=== PATIENT | female | born 1930 | race Caucasian/White ===

== ENCOUNTER 2017-06-18 14:34 | Inpatient (IN) ==
[2017-06-18] MEDS ORDERED: IOPAMIDOL 100 ML BOTTLE IV ONE (14:35)
[2017-06-18] MEDS ORDERED: 0.9 % SODIUM CHLORIDE 1,000 ML IV ONE (15:00)
--- NOTE | 2017-06-18 15:36 | Emergency Department Note ---
Abdominal Pain HPI - General Chief Complaint: Abdominal Pain Stated Complaint: abd pain x3 days Time Seen by Provider: 06/18/17 15:19 Source: patient, family Mode of arrival: wheelchair Limitations: no limitations - History of Present Illness HPI Narrative: 86-year-old female with a history of lower abdominal pain for the past 24 hours she does not really know how long is been present. She is a poor historian. Denies any urgency frequency or dysuria. - Related Data Home Medications Medication Instructions Recorded Confirmed calcium carbonate 500 mg (1,250 1 tab PO QHS tab 11/29/14 06/18/17 mg)-vitamin D3 125 unit tablet vitamin A-vitamin C-vit E-min 1 tab-cap PO QDAY tab 12/22/14 06/18/17 tablet Previous Rx's Medication Instructions Recorded acetaminophen 500 mg tablet 500 mg PO Q6H PRN #90 tab 03/18/17 amlodipine 5 mg tablet 5 mg PO QDAY #90 tab 03/18/17 artificial tears (hypromellose) 1 drp OPHTHALMIC TID #10 ml 03/18/17 (PF) 0.3 % eye drops ascorbic acid (vitamin C) 500 mg 500 mg PO QDAY #90 tab 03/18/17 chewable tablet aspirin 81 mg tablet,delayed 81 mg PO QDAY #90 tab 03/18/17 release atorvastatin 40 mg tablet 40 mg PO QHS #90 tab 03/18/17 cranberry 400 mg capsule 400 mg PO QDAY #90 cap 03/18/17 donepezil 10 mg tablet 10 mg PO QHS #90 tab 03/18/17 ginkgo biloba 120 mg tablet 120 mg PO QDAY #90 tab 03/18/17 lisinopril 40 mg tablet 40 mg PO QDAY #90 tab 03/18/17 lorazepam 0.5 mg tablet 0.5 mg PO BID PRN #10 tab 03/18/17 metformin ER 500 mg 500 mg PO QDAY #90 tab 03/18/17 tablet,extended release 24 hr multivitamin tablet 1 tab PO QDAY #90 tab 03/18/17 Allergies Allergy/AdvReac Type Severity Reaction Status Date / Time trimethoprim [From Bactrim] Allergy Mild Nausea Verified 06/18/17 13:35 promethazine [From Phenergan] AdvReac Severe Hallucinati Verified 06/18/17 13:35 ng sulfamethoxazole AdvReac Mild Nausea Verified 06/18/17 13:35 [From Bactrim] Abdominal Pain PMH - Social History Smoking status: Never smoker Physical Exam Limitations: no limitations Course Vital Signs Temperature 97.3 F 06/18/17 14:43 Pulse Rate 73 06/18/17 14:43 Respiratory Rate 18 06/18/17 14:43 Blood Pressure 130/50 06/18/17 14:43 Pulse Oximetry (%) 97 06/18/17 14:43 Temperature 97.3 F 06/18/17 14:43 Pulse Rate 60 06/18/17 17:40 Respiratory Rate 18 06/18/17 14:43 Blood Pressure 117/56 06/18/17 17:40 Pulse Oximetry (%) 97 06/18/17 17:40 Abdominal Pain - [facility] Narrative Medical decision making narrative: elevated wbc 17,470 fever 103, lactate 9.47 blood culture drawn and started on rocephin and zithromax. chest exray show no obvious infiltrate.. patient was weak in the bsathroom required assistance to help get back up. case presented to dr White and she will vbe here to admitt - Lab Data Result diagrams: 06/18/17 15:15 06/18/17 15:15 Disposition Pt seen by COMPUTER TRAINER/PA only: No Clinical Impression: Sepsis Qualifiers: Sepsis type: sepsis due to unspecified organism Qualified Code(s): A41.9 - Sepsis, unspecified organism Disposition: Xfer As Inpt ([facility]) Condition: Fair Referrals: Farhat Montenegro MD [Primary Care Provider] -
[2017-06-18] MEDS ORDERED: LEVOFLOXACIN 500 MG/100 ML BAG IV ONE (17:38)
--- NOTE | 2017-06-18 18:47 | Cat Scan Report ---
CLINICAL INFORMATION: Abdominal pain COMPARISON: Previous CT scan dated 01/16/2012 TECHNIQUE: Axial images were obtained through the abdomen and pelvis. Sagittally and coronally reformatted images. 70 amount contrast material injected intravenously. Oral contrast material was given FINDINGS: Partial mechanical small bowel obstruction. Transition point is approximately midline at the level of the iliac crests. Appearance is consistent with partial ileal obstruction. Distal ileum is not dilated. There is contrast material within the colon indicating this is not a complete obstruction. There is infiltration of the fat surrounding the ileum. No pneumoperitoneum. No intra-abdominal abscess. I am not given history of previous surgery. This is probably related to adhesions. Internal hernia is possible. No evidence for closed loop obstruction. : Is negative. No diverticulitis. No detectable colonic mass. No appendicitis. No free intraperitoneal fluid. No pneumoperitoneum. No intra-abdominal abscess. Lung bases are negative. No parenchymal infiltrate or mass. No pleural fluid. No pericardial fluid. There is a 10 mm low-density abnormality in the anterior segment of the right lobe of the liver. This is stable since 2011 and is benign. Previous cholecystectomy. Common bile duct measures approximately 9 mm in cross-sectional diameter. No detectable choledocholithiasis. No intrahepatic bile duct dilatation. Negative spleen. No splenomegaly. Normal enhancement splenic and portal veins Negative adrenal glands. Negative pancreas. No pancreatic mass. No peripancreatic abnormality. Kidneys are negative. No solid or cystic mass. No hydronephrosis. Uterus is present. No adnexal mass. Multilevel degenerative disc disease and lumbar spine. No compression deformities. No sacral or pelvic fracture. There is calcification of the abdominal aorta. No abdominal aortic aneurysm. Celiac trunk and superior mesenteric artery are patent. IMPRESSION: 1. Partial mechanical small bowel obstruction at the level of the ileum. This is at approximately the level of the iliac crests and midline. Findings may be secondary to adhesions or internal hernia. No evidence for significant closed loop. 2. Previous cholecystectomy. Mild extrahepatic bile duct dilatation 3. Atherosclerotic disease. No abdominal aortic aneurysm Interpreted and Authenticated by: Julian Quarles 06/18/17
[2017-06-18] MEDS ORDERED: PIPERACILLIN SODIUM/TAZOBACTAM 3.375 GM VIAL IV ONE (19:25)
[2017-06-18] MEDS ORDERED: ONDANSETRON 4 MG/2 ML VIAL IV PRN (19:28)
[2017-06-18] MEDS: PIPERACILLIN SODIUM/TAZOBACTAM 3.375 GM in DEXTROSE 5% IN WATER 50 ML IV SCH (20:01)
[2017-06-18] MEDS: 0.9 % SODIUM CHLORIDE 1,000 ML IV SCH (20:53)
[2017-06-18 23:44] LABS: Appearance,Urine CLOUDY; Bacteria,Urine FEW /hpf (0); Bilirubin,Urine NEG (NEG); Color,Urine AMBER; Glucose,Urine (UA) NEGATIVE (NEG); Leukocyte Esterase,Urine 500 /uL (NEG); Mucus,Urine MANY /hpf (0); Nitrate,Urine NEG (NEG); Protein,Urine 30 mg/dL (NEG); Specific Gravity,Urine 1.019 (1.000-1.035); Urine Blood NEG mg/dL (<0.03); Urine Hyaline Cast 21 /lpf (0-2); Urine RBC 9 /hpf (0-1); Urine Squamous Epithelial Cell 3 /hpf (0-4); Urine WBC 182 /hpf (0-4); Urobilinogen,Urine NEG (NEG)
[2017-06-18 23:46] LABS: ALT/SGPT 15 U/l (0-40); Albumin 3.9 gm/dL (3.2-5.2); Albumin/Globulin Ratio 1.5 (1.0-2.3); Alkaline Phosphatase 102 U/L (39-117); Blood Urea Nitrogen 16 mg/dl (8-23)
[2017-06-18 23:48] LABS: Lymphocytes % 10 % (15-49); Mean Cell Volume 91.3 fL (80.0-100.0); Mean Corpuscular HGB Conc 33.7 g/dL (31.0-36.0); Mean Corpuscular Hemoglobin 30.8 pg (26.0-34.0); Monocytes % (Manual) 4 % (1-12); Platelet Count 282 K/mcL (140-440); Platelet Estimate NORMAL (NORMAL); RBC 4.22 M/mcL (4.00-5.20); RBC Morphology NORMAL (NORMAL); Red Cell Distribution Width 13.1 % (11.5-14.5); Segmented Neutrophils % 86 % (38-78)
[2017-06-19] MEDS: PIPERACILLIN SODIUM/TAZOBACTAM 3.375 GM in DEXTROSE 5% IN WATER 50 ML IV SCH ×3 (05:48→21:31)
[2017-06-19 08:24] LABS: Basophils # (Auto) 0 K/mcL (0.0-0.3); Basophils % (Auto) 0.2 % (0.0-2.0); Eosinophils # (Auto) 0.1 K/mcL (0.0-0.7); Eosinophils % (Auto) 1.3 % (0.0-7.0); Granulocytes % (Auto) 76.8 % (38.0-78.0); Lymphocytes # (Auto) 1.4 K/mcL (1.5-4.8); Lymphocytes % (Auto) 14.7 % (15.5-49.0); Mean Cell Volume 91.1 fL (80.0-100.0); Mean Corpuscular HGB Conc 34.4 g/dL (31.0-36.0); Mean Corpuscular Hemoglobin 31.3 pg (26.0-34.0); Monocytes # (Auto) 0.7 K/mcL (0.1-0.9); Platelet Count 196 K/mcL (140-440); RBC 3.93 M/mcL (4.00-5.20); Red Cell Distribution Width 12.9 % (11.5-14.5)
[2017-06-19 08:37] LABS: ALT/SGPT 11 U/l (0-40); Albumin 3.2 gm/dL (3.2-5.2); Albumin/Globulin Ratio 1.2 (1.0-2.3); Alkaline Phosphatase 79 U/L (39-117); Bilirubin,Direct < 0.2 mg/dL (0.0-0.3); Blood Urea Nitrogen 9 mg/dl (8-23); Gamma Glutamyl Transpeptidase 14 U/L (5-36); Magnesium 1.8 mg/dL (1.6-2.5); Uric Acid 3.6 mg/dL (2.5-8.0)
[2017-06-19] MEDS ORDERED: DIATRIZOATE MEGLU/DIATRIZO SOD 30 ML BOTTLE PO ONE ×4 (09:14)
--- NOTE | 2017-06-19 09:44 | XRay Report ---
CLINICAL INFORMATION: Abdominal pain. CT scan demonstrates partial small bowel obstruction TECHNIQUE: Patient ingested 120 mL water-soluble contrast material. Community Program Assistant image, and the image, and 30 minute abdominal film obtained COMPARISON: CT scan dated 06/18/2017 FINDINGS: There is dilated small bowel in the lower abdomen, midline. This corresponds in location with the site of probable partial mechanical small bowel obstruction on previous CT scan. Community Program Assistant film demonstrates contrast material in the colon from prior CT scan. No residual small bowel contrast material identified. There is rapid progression of contrast material through the small bowel. Contrast material is in the colon by 30 m postingestion. No high-grade mechanical small bowel obstruction. There is mildly dilated small bowel in the lower abdomen. No other focal abnormality. No detectable mass. IMPRESSION: No high-grade mechanical small bowel obstruction. Contrast material is in the colon by 30 m postingestion Interpreted and Authenticated by: Julian Quarles 06/19/17
[2017-06-19] MEDS: 0.9 % SODIUM CHLORIDE 1,000 ML IV SCH ×2 (09:58→19:00)
--- NOTE | 2017-06-19 14:50 | General Surg History&Physical ---
History of Present Illness Patient information: Note initiated : 06/19/17 at 2:47 pm Service Date, if different from initiated Date: [] Patient: Rosa Robles 86 y/o F admitted on 06/18/17 for Abdominal Pain x 3 Days/Sepsis. Chief Complaint: [] HPI: Ms. Robles is a 86 year old F admitted with presumed small bowel obstruction. The patient was seen in Dr. Montenegro's office complaining of abdominal pain constipation fever nausea and vomiting. She was referred to the emergency room where she had a CT done which showed a suggestion of partial obstruction of the distal small bowel however the CT shows that she has gas and stool that extends through the distal small bowel and through the colon to the rectum. The patient reportedly have a white blood count of 21,000 however repeat white blood count is only 9000. There is a possibility of a UTI which could be the source of the leukocytosis however her specimen was not a cath specimen There is no evidence that the urine was sent for ENVIRONMENTAL CONSULTANT. She had a small bowel follow- through which showed total transit of contrast through the bowel and colon in 30 minutes and she had multiple large bowel movements thereafter. Presently the patient is stable and pleasantly confused. I cannot get any definitive questions answered about her abdominal pain. She does state that she has ache in her lower abdomen. Review of Systems - Constitutional fatigue, fever(s), malaise, weight loss - EENT Nose, mouth and throat: abnormal hearing, dizziness - Cardiovascular palpatations - Respiratory no cough, no wheezing, no chest congestion, no pain with cough - Gastrointestinal abdominal pain, constipation - Genitourinary Genitourinary: nocturia, urinary frequency, urinary urgency, other (History of multiple UTIs) - Musculoskeletal arthralgias, back pain, joint swelling, stiffness - Integumentary no change in pigmentation, no changing lesions, no pruritus, no rash - Neurological dizziness, frequent falls, memory loss, restless legs, weakness - Psychiatric anxiety, memory loss - Endocrine fatigue, no palpitations - Hematologic/Lymphatic no easy bleeding, no easy bruising, no lymphadenopathy - Allergic/Immunologic no tongue swelling, no throat swelling, no uticaria, no wheezing, no lip swelling Past History Past medical history: Obtained from record History of TIAs Gastroesophageal reflux disease Progressive memory loss Diabetes mellitus Right carotid stenosis Low back pain Anxiety syndrome Osteoarthritis Hypertension Past surgical history: Right mastoidectomy Right knee arthroscopy Cholecystectomy Bilateral carpal tunnel release Appendectomy Low back surgery Past family history: Not obtainable from records or from patient since patient has dementia Past social history: Obtained from record lives in assisted living Never smoker Occasional alcohol use Medications and Allergies Home Medications Medication Instructions Recorded Confirmed Type calcium carbonate 500 mg (1,250 1 tab PO QHS tab 11/29/14 06/18/17 History mg)-vitamin D3 125 unit tablet vitamin A-vitamin C-vit E-min 1 tab-cap PO QDAY tab 12/22/14 06/18/17 History tablet acetaminophen 500 mg tablet 500 mg PO Q6H PRN #90 tab 03/18/17 06/18/17 Rx amlodipine 5 mg tablet 5 mg PO QDAY #90 tab 03/18/17 06/18/17 Rx artificial tears (hypromellose) 1 drp OPHTHALMIC TID #10 ml 03/18/17 06/18/17 Rx (PF) 0.3 % eye drops ascorbic acid (vitamin C) 500 mg 500 mg PO QDAY #90 tab 03/18/17 06/18/17 Rx chewable tablet aspirin 81 mg tablet,delayed 81 mg PO QDAY #90 tab 03/18/17 06/18/17 Rx release atorvastatin 40 mg tablet 40 mg PO QHS #90 tab 03/18/17 06/18/17 Rx cranberry 400 mg capsule 400 mg PO QDAY #90 cap 03/18/17 06/18/17 Rx donepezil 10 mg tablet 10 mg PO QHS #90 tab 03/18/17 06/18/17 Rx ginkgo biloba 120 mg tablet 120 mg PO QDAY #90 tab 03/18/17 06/18/17 Rx lisinopril 40 mg tablet 40 mg PO QDAY #90 tab 03/18/17 06/18/17 Rx lorazepam 0.5 mg tablet 0.5 mg PO BID PRN #10 tab 03/18/17 06/18/17 Rx metformin ER 500 mg 500 mg PO QDAY #90 tab 03/18/17 06/18/17 Rx tablet,extended release 24 hr multivitamin tablet 1 tab PO QDAY #90 tab 03/18/17 06/18/17 Rx Allergies Allergy/AdvReac Type Severity Reaction Status Date / Time trimethoprim [From Bactrim] Allergy Mild Nausea Verified 06/18/17 13:35 promethazine [From Phenergan] AdvReac Severe Hallucinati Verified 06/18/17 13:35 ng sulfamethoxazole AdvReac Mild Nausea Verified 06/18/17 13:35 [From Bactrim] Exam Temp Pulse Resp BP Pulse Ox 98.9 F 72 18 145/60 98 06/19/17 12:00 06/19/17 12:00 06/19/17 12:00 06/19/17 12:00 06/19/17 12:00 - General physical appearance well developed, well nourished, no distress - Eyes PERRL, normal ocular movement - ENT normal pinna, normal nares, normal mucosa, no hearing loss, no congestion, decreased hearing - Head Head exam IM: Present: atraumatic, normal inspection, normocephalic - Neck no masses, no bruits, trachea midline, no lymphadectomy, no venous distension - Cardiovascular Cardiovascular exam IM: Present: +S1, +S2. Absent: irregular rhythm, JVD - Respiratory normal expansion, normal respiratory effort, clear to percussion, clear to auscultation - Abdomen Abdomen: Present: soft, tender (Mild diffuse tenderness in mid abdomen with mild distention; good active bowel sounds), bowel sounds Hernia: Present: none - Genitourinary Present: normal external genitalia - Integumentary Present: no rash, no growths, no abnormal pigmentation - Neurologic Present: normal coordination, normal sensation, disoriented, confused, memory loss - Musculoskeletal Present: normal posture, other (Gait not tested because patient is very unsteady ) - Psychiatric Present: oriented to person, speech is normal, other (Oriented only to person) Assessment and Plan (1) Acute generalized abdominal pain Repeat cath urine analysis and ENVIRONMENTAL CONSULTANT Continue antibiotics until repeat studies of the Status: Acute (2) Small bowel obstruction, partial Follow-up small bowel x-rays in the morning Status: Acute (3) Recent unexplained weight loss Status: Acute (4) Osteoarthritis Status: Acute (5) Hypertension Status: Chronic Qualifiers: Hypertension type: essential hypertension Qualified Code(s): I10 - Essential (primary) hypertension (6) Dementia Status: Chronic Qualifiers: Dementia type: unspecified type Dementia behavioral disturbance: without behavioral disturbance Qualified Code(s): F03.90 - Unspecified dementia without behavioral disturbance
[2017-06-19 17:10] LABS: Appearance,Urine CLEAR; Bacteria,Urine 0 /hpf (0); Bilirubin,Urine NEG (NEG); Color,Urine YELLOW; Glucose,Urine (UA) NEGATIVE (NEG); Leukocyte Esterase,Urine NEG /uL (NEG); Nitrate,Urine NEG (NEG); Protein,Urine NEG (NEG); Specific Gravity,Urine 1.025 (1.000-1.035); Urine Blood 0.2 mg/dL (<0.03); Urine Hyaline Cast 1 /lpf (0-2); Urine RBC 153 /hpf (0-1); Urine Squamous Epithelial Cell < 1 /hpf (0-4); Urine WBC 0 /hpf (0-4); Urobilinogen,Urine NEG (NEG)
[2017-06-19] MEDS: OLANZapine 2.5 MG TABLET PO PRN ×2 (20:26→21:31)
[2017-06-20] MEDS: 0.9 % SODIUM CHLORIDE 1,000 ML IV SCH (04:06)
[2017-06-20] MEDS: PIPERACILLIN SODIUM/TAZOBACTAM 3.375 GM in DEXTROSE 5% IN WATER 50 ML IV SCH ×3 (05:09→21:02)
[2017-06-20 05:43] LABS: Mean Cell Volume 91.3 fL (80.0-100.0); RBC 4.36 M/mcL (4.00-5.20)
[2017-06-20 05:44] LABS: Basophils # (Auto) 0 K/mcL (0.0-0.3); Basophils % (Auto) 0.3 % (0.0-2.0); Eosinophils # (Auto) 0.2 K/mcL (0.0-0.7); Eosinophils % (Auto) 1.3 % (0.0-7.0); Granulocytes % (Auto) 76.2 % (38.0-78.0); Lymphocytes % (Auto) 15.4 % (15.5-49.0); Mean Corpuscular HGB Conc 33.8 g/dL (31.0-36.0); Mean Corpuscular Hemoglobin 30.9 pg (26.0-34.0); Monocytes # (Auto) 0.9 K/mcL (0.1-0.9); Monocytes % (Auto) 6.8 % (1.0-12.0); Platelet Count 285 K/mcL (140-440); Red Cell Distribution Width 12.4 % (11.5-14.5)
[2017-06-20 06:00] LABS: ALT/SGPT 14 U/l (0-40); Albumin 3.9 gm/dL (3.2-5.2); Albumin/Globulin Ratio 1.4 (1.0-2.3); Alkaline Phosphatase 87 U/L (39-117); Bilirubin,Direct < 0.2 mg/dL (0.0-0.3); Blood Urea Nitrogen 5 mg/dl (8-23); Gamma Glutamyl Transpeptidase 18 U/L (5-36); Magnesium 1.7 mg/dL (1.6-2.5); Uric Acid 2.6 mg/dL (2.5-8.0)
--- NOTE | 2017-06-20 07:25 | XRay Report ---
CLINICAL INFORMATION: Partial small bowel obstruction TECHNIQUE: AP supine abdomen COMPARISON: Previous small bowel study dated 06/19/[address] scan dated 06/18/2007 FINDINGS: Contrast material has almost completely passed. There is some small bowel gas. There is gas and fecal material within the colon. Bowel gas pattern is nonspecific. IMPRESSION: No plain film evidence for significant small bowel obstruction Interpreted and Authenticated by: Julian Quarles 06/20/17
--- NOTE | 2017-06-20 16:44 | General Surgery Progress Note ---
Subjective Patient reports: feels better, pain is less, tolerating a regular diet, flatus, bowel movement, afebrile Narrative: Note initiated : 06/20/17 at 4:42 pm Service Date, if different from initiated Date: [] Patient: Rosa Robles 86 y/o F admitted on 06/18/17 for Abdominal Pain x 3 Days/Sepsis. Chief Complaint: [ patient has significantly improved. She was disoriented most of the night. She does not complain of abdominal pain she is tolerating diet without difficulty. She had multiple bowel movements. Patient is stable for discharge however it probably will not be able to be arranged today due to nonavailability of beds.] Objective Temp Pulse Resp BP Pulse Ox 98.5 F 88 16 153/71 98 06/20/17 12:00 06/20/17 06:49 06/20/17 12:00 06/20/17 12:00 06/20/17 12:00 - Additional Data Intake & Output - Last 24 hours: Intake & Output 06/18/17 06/19/17 06/20/17 06/21/17 05:59 05:59 05:59 05:59 Intake Total 1100 / 1100 2120 / 2120 50 / 50 Output Total 850 / 850 2282 / 2282 825 / 825 Balance 250 / 250 -162 / -162 -775 / -775 Weight 125 lb 12.8 oz 125 lb 12.8 oz 125 lb 12.8 oz - General physical appearance well developed, well nourished, no distress, severe distress - Eyes PERRL, normal ocular movement - ENT no congestion - Neck no venous distension - Respiratory normal expansion, normal respiratory effort, clear to percussion, clear to auscultation - Cardiovascular Cardiovascular exam: Present: normal rate and rhythm, RRR, +S1, +S2, tachycardia - Abdomen non tender, bowel sounds (present), surgical scars (none), masses (none) - Integumentary no rash, no growths, no abnormal pigmentation - Neurologic normal coordination, normal sensation - Musculoskeletal normal gait, normal posture - Psychiatric oriented to time, oriented to person, oriented to place, speech is normal, memory intact - Labs 06/21/17 08:33 06/20/17 04:07 Diabetes panel 06/20/17 Range/Units 04:07 Sodium 136 (133-145) mmol/L Potassium 3.5 (3.3-5.1) mmol/L Chloride 98 (96-108) mmol/L Carbon Dioxide 23 (22-30) mmol/L BUN 5 L (8-23) mg/dl Creatinine 0.8 (0.6-1.1) mg/dl Glucose 123 H (70-105) mg/dL Calcium 9.1 (8.6-10.4) mg/dl AST 18 (0-37) U/l ALT 14 (0-40) U/l Alkaline Phosphatase 87 (39-117) U/L Total Protein 6.6 (5.9-8.4) gm/dL Albumin 3.9 (3.2-5.2) gm/dL Triglycerides 82 (<150) mg/dl Calcium panel 06/20/17 Range/Units 04:07 Calcium 9.1 (8.6-10.4) mg/dl Phosphorus 2.4 L (2.7-4.5) mg/dL Albumin 3.9 (3.2-5.2) gm/dL Pituitary panel 06/20/17 Range/Units 04:07 Sodium 136 (133-145) mmol/L Potassium 3.5 (3.3-5.1) mmol/L Chloride 98 (96-108) mmol/L Carbon Dioxide 23 (22-30) mmol/L BUN 5 L (8-23) mg/dl Creatinine 0.8 (0.6-1.1) mg/dl Glucose 123 H (70-105) mg/dL Calcium 9.1 (8.6-10.4) mg/dl Adrenal panel 06/20/17 Range/Units 04:07 Sodium 136 (133-145) mmol/L Potassium 3.5 (3.3-5.1) mmol/L Chloride 98 (96-108) mmol/L Carbon Dioxide 23 (22-30) mmol/L BUN 5 L (8-23) mg/dl Creatinine 0.8 (0.6-1.1) mg/dl Glucose 123 H (70-105) mg/dL Calcium 9.1 (8.6-10.4) mg/dl Total Bilirubin 0.7 (0.0-1.0) mg/dL AST 18 (0-37) U/l ALT 14 (0-40) U/l Alkaline Phosphatase 87 (39-117) U/L Total Protein 6.6 (5.9-8.4) gm/dL Albumin 3.9 (3.2-5.2) gm/dL Assessment and Plan (1) Acute generalized abdominal pain Status: Resolved Assessment and plan: We will make arrangements for discharge in the morning Current Visit: Yes (2) Small bowel obstruction, partial Status: Resolved Current Visit: Yes (3) Recent unexplained weight loss Status: Acute Current Visit: Yes (4) Osteoarthritis Status: Acute Current Visit: Yes (5) Hypertension Status: Chronic Current Visit: No (6) Dementia Status: Chronic Current Visit: No - Time Spent With Patient Total time spent is greater than 50% in coordination of care (as documented) at patient's floor/unit and/or counseling patient:
[2017-06-20] MEDS ORDERED: LORazepam 2 MG/ML VIAL IV PRN (16:45)
[2017-06-20] MEDS: OLANZapine 2.5 MG TABLET PO PRN (20:55)
[2017-06-21] MEDS: PIPERACILLIN SODIUM/TAZOBACTAM 3.375 GM in DEXTROSE 5% IN WATER 50 ML IV SCH ×2 (05:28→13:31)
[2017-06-21 09:14] LABS: Basophils # (Auto) 0 K/mcL (0.0-0.3); Basophils % (Auto) 0.3 % (0.0-2.0); Eosinophils # (Auto) 0.2 K/mcL (0.0-0.7); Eosinophils % (Auto) 2.5 % (0.0-7.0); Granulocytes % (Auto) 70.2 % (38.0-78.0); Lymphocytes % (Auto) 21.1 % (15.5-49.0); Mean Cell Volume 91.6 fL (80.0-100.0); Mean Corpuscular HGB Conc 34.1 g/dL (31.0-36.0); Mean Corpuscular Hemoglobin 31.2 pg (26.0-34.0); Monocytes # (Auto) 0.6 K/mcL (0.1-0.9); Monocytes % (Auto) 5.9 % (1.0-12.0); Platelet Count 309 K/mcL (140-440); RBC 4.36 M/mcL (4.00-5.20); Red Cell Distribution Width 12.8 % (11.5-14.5)
--- NOTE | 2017-06-21 10:25 | Discharge Summary ---
Providers - Providers Patient information: Note initiated : 06/21/17 at 10:23 am Service Date, if different from initiated Date: [] Patient: Rosa Robles 86 y/o F admitted on 06/18/17 for Abdominal Pain x 3 Days/Sepsis. Chief Complaint: [] Date of admission: 06/18/17 Discharge date: 06/21/17 Attending physician: Ronel Vieira Hospitalization Hospital course: 86-year-old female admitted on 19 June with complaints of abdominal pain, constipation, fever, nausea and vomiting. She was referred from Dr. Montenegro's office to the emergency room with the above complaints. A CT was done which showed a suggestion of partial obstruction of the distal small bowel however that same CT showed copious gas in the distal small bowel as well as the colon extending through the rectum. The initial white blood count was 21,000 however a repeat white blood count a few hours later was down to 9000. The urine analysis on the chart was 30 and a repeat urinalysis was normal. INTERNAL CONTROL MANAGER revealed multiple species suggestive of contamination. A small bowel follow-through was done which showed transit through the small bowel and 30 minutes which effectively ruled out obstruction she had multiple large bowel movements and copious gas thereafter. A follow-up abdominal x-ray was totally unremarkable without obstructive pattern. The patient had rapid progression of her diet and is now tolerating a regular diet. She has been afebrile her whole hospitalization. There is an element of significant dementia and she is only oriented to person. She is also warned her and has unsteady gait. She did not have any falls during the stay and required one-to-one nursing care most of the time. Patient is presently stable and is transferred to the nursing care facility in stable condition. Discharge diagnosis: Partial small bowel obstruction Secondary discharge diagnosis: , Alzheimer's type dementia Unexplained weight loss Osteoarthritis Hypertension Reason for admission: Abdominal pain nausea vomiting and fever Procedures: None Pertinent studies/significant findings: CT of abdomen and pelvis with contrast Small bowel follow-through contrast study Complications: None Exam Temp Pulse Resp BP Pulse Ox 97.6 F 65 16 128/66 98 06/21/17 07:40 06/21/17 07:40 06/21/17 07:40 06/21/17 07:40 06/21/17 07:40 - General physical appearance well developed, well nourished, no distress - Eyes PERRL, normal ocular movement - ENT normal pinna, normal nares, normal mucosa, no hearing loss, no congestion - Head Head exam IM: Present: atraumatic, normocephalic - Neck no masses, no bruits, trachea midline, no lymphadectomy, no venous distension - Cardiovascular Cardiovascular exam IM: Present: normal rate and rhythm - Respiratory normal expansion, normal respiratory effort, clear to percussion, clear to auscultation - Abdomen Abdomen: Present: soft (No distention or tenderness; good active bowel sounds), non tender, bowel sounds Hernia: Present: none - Genitourinary Present: normal external genitalia - Integumentary Present: no rash, no growths, no abnormal pigmentation - Neurologic Present: disoriented, confused, memory loss - Musculoskeletal Present: normal posture, other (Unsteady gaitWith need for assistance) - Psychiatric Present: oriented to person, speech is normal, memory intact Discharge Plan - Patient/Caregiver Discharge Instructions Activity: increase activity as tolerated Diet: Regular Diet Additional Instructions: Continue all medications as prior to admission - Follow up Plan Follow up with: Farhat Montenegro MD [Primary Care Provider] - Disposition: [facility] SNF Prognosis: Fair Rehab Potential: Fair I certify that the patient requires SNF services.: Yes Overall status at discharge: patient is back to baseline Pending Studies Resuscitation Status Full Code Diet GI Soft/Transitional Start Katarzyna Jun 20 1248 Piperacillin Sod/Tazobactam (Sod 3.375 gm/ Dextrose) 50 mls @ 100 mls/hr IV Q8H MAHSA Last Infusion: 06/21/17 06:19 Dose: 0 mls/hr Admin: 06/21/17 05:28 Dose: 100 mls/hr Infusion: 06/20/17 21:32 Dose: 0 mls/hr Admin: 06/20/17 21:02 Dose: 100 mls/hr Infusion: 06/20/17 13:45 Dose: 0 mls/hr Admin: 06/20/17 13:15 Dose: 100 mls/hr Infusion: 06/20/17 05:40 Dose: 0 mls/hr Admin: 06/20/17 05:09 Dose: 100 mls/hr Infusion: 06/19/17 22:01 Dose: 100 mls/hr Admin: 06/19/17 21:31 Dose: 100 mls/hr Infusion: 06/19/17 15:10 Dose: 100 mls/hr Admin: 06/19/17 14:40 Dose: 100 mls/hr Infusion: 06/19/17 12:22 Dose: 0 mls/hr Admin: 06/19/17 05:48 Dose: 100 mls/hr Admin: 06/18/17 20:01 Dose: Not Given Olanzapine (Zyprexa) 2.5 - 5 mg PO HS PRN PRN Reason: Agitation Last Admin: 06/20/17 20:55 Dose: 5 mg Admin: 06/19/17 21:31 Dose: 2.5 mg Admin: 06/19/17 20:26 Dose: 2.5 mg Shift Summary 06/21/17 03:06 Shift Summary by Norma Chin Pt alert and oriented only to self tonight. Used a FWW in hallway, walked down to dialysis doors and back to room. Pt is pleasantly confused, impulsive, doesn' t use call light. Attends on for comfort. Skin intact. voiding per BSC. IV SL to RFA. Gave 5mg Zyprexa at HS. Pt has been calm all shift, and has been asleep all night. required 1 on 1 care yesterday. Is from assisted living at [facility], unsure when pt will be returning. VSS on RA. Initialized on 06/21/17 03:06 - END OF NOTE
== END 2017-06-21 16:35 | DRG 872 ==
LOC: ED 14:34 → ICU 20:11 → MEDSUR 06-19 17:58
PROVIDERS: ADMIT Family Medicine Adult Medicine; ATTEND Family Medicine Adult Medicine